=== PATIENT | female | born 2000 | race African-American/Black ===

== ENCOUNTER 2021-01-11 00:13 | Inpatient (IN) ==
[2021-01-11] MEDS ORDERED: MEPERIDINE 50 MG/1 ML VIAL IV PRN (02:12)
[2021-01-11] MEDS ORDERED: ONDANSETRON 4 MG/2 ML VIAL IV PRN ×2 (02:12→20:18)
[2021-01-11] MEDS ORDERED: BUTORPHANOL 2 MG/ML VIAL IV PRN (02:12)
[2021-01-11] MEDS ORDERED: LACTATED RINGERS 500 ML IV PRN (02:12)
[2021-01-11 02:28] LABS: Basophils % 0.1 % (0.0-0.8); Eosinophils # 0.1 10*3/uL (0.0-0.87); Hematocrit 35.9 VOL% (35.7-47.0); Hemoglobin 11.4 GM/DL (12.0-16.0); Immature Granulocytes % 0.6 %; Immature Granulocytes Absolute 0.05 #; Lymphocytes # 1.7 10*3/uL (1.4-4.0); Lymphocytes % 21.9 % (21.3-54.2); Mean Corpuscular HGB Conc 31.8 GM/DL (32-36); Mean Corpuscular Volume 85.3 FL (87-102); Mean Platelet Volume 8.8 FL (9.6-12.0); Monocytes % 8.5 % (1.7-12.7); Neutrophils % 67.9 % (38.7-73.9); Platelet Count 291 T/CUMM (130-400); Red Blood Count 4.21 MC/CUMM (3.8-5.5); White Blood Count 7.9 T/CUMM (4-12)
[2021-01-11] MEDS ORDERED: OXYTOCIN/LR 20 UNIT/1,000 ML BAG IV SCH (02:30)
[2021-01-11 03:03] LABS: Alanine Aminotransferase 21 U/L (13-56); Albumin 3.1 G/DL (3.4-5.0); Alkaline Phosphatase 148 U/L (45-117); Aspartate Amino Transferase 15 U/L (0-37); Bilirubin,Total < 0.39 MG/DL (0.20-1.00); Blood Urea Nitrogen 8 MG/DL (7-18); Calcium 9.5 MG/DL (8.5-10.1); Carbon Dioxide 24 MMOL/L (21-32); Estimated Glom Filtration Rate 187 ML/MIN; Glucose 88 MG/DL (74-106); Potassium 3.6 MMOL/L (3.5-5.1); Sodium 136 MMOL/L (136-145); Total Protein 7.5 G/DL (6.4-8.2)
[2021-01-11] MEDS: LACTATED RINGERS 1,000 ML IV SCH ×2 (03:03→10:40)
[2021-01-11] MEDS: CLINDAMYCIN INJ 900 MG/50 ML PREMIX IV SCH ×3 (03:11→14:53)
[2021-01-11] MEDS ORDERED: LACTATED RINGERS 1,000 ML IV ONE (13:07)
[2021-01-11] MEDS ORDERED: NALOXONE 0.4 MG/ML VIAL IV PRN (13:07)
[2021-01-11] MEDS ORDERED: FAMOTIDINE 20 MG/2 ML VIAL IV ONE (13:07)
[2021-01-11] MEDS ORDERED: ePHEDrine 50 MG/ML VIAL IV PRN (13:07)
[2021-01-11] MEDS ORDERED: CITRIC ACID/SODIUM CITRATE 30 ML UDCUP PO ONE (13:07)
[2021-01-11] MEDS ORDERED: diphenhydrAMINE 50 MG/1 ML VIAL IV PRN ×2 (13:07)
[2021-01-11] MEDS ORDERED: PROMETHAZINE 25 MG/1 ML VIAL IM ONE (13:07)
[2021-01-11] MEDS ORDERED: hydrOXYzine HCL 25 MG/1 ML VIAL IM PRN (13:07)
[2021-01-11] MEDS ORDERED: fentaNYL 2 MCG/ROPIV 0.2% EPID 100 ML EPIDURAL SCH (13:30)
[2021-01-11 15:42] LABS: Bilirubin,Urine Negative (Negative); Blood, Urine Negative (Negative); Glucose,Urine (UA) Negative (Negative); Ketones,Urine Negative (Negative); Nitrite,Urine Negative (Negative); Protein,Urine Negative; RBC,Urine <1 /HPF (0-4); Urine Appearance CLEAR (Clear); Urine Color Straw (Yellow); Urine Specific Gravity 1.006 (1.001-1.035); Urine Urobilinogen < 2.0 EU/DL (0.2-1.0)
[2021-01-11] MEDS ORDERED: TRANEXAMIC ACID 1,000 MG/10 ML VIAL ONE (18:43)
[2021-01-11] MEDS ORDERED: OXYTOCIN/LR 20 UNIT/1,000 ML BAG IV ONE ×2 (18:43→20:18)
[2021-01-11] MEDS ORDERED: miSOPROStoL 200 MCG TABLET ONE (18:43)
[2021-01-11] MEDS ORDERED: CARBOPROST TROMETHAMINE 250 MCG/ML AMP IM ONE (18:44)
[2021-01-11] MEDS ORDERED: METHYLERGONOVINE 0.2 MG/1 ML AMP ONE (18:44)
[2021-01-11] MEDS ORDERED: CLINDAMYCIN INJ 900 MG/50 ML PREMIX IV ONE (19:21)
[2021-01-11] MEDS ORDERED: ACETAMINOPHEN INJ 1,000 MG/100 ML VIAL IV ONE (19:48)
[2021-01-11] MEDS ORDERED: ONDANSETRON 4 MG/2 ML VIAL ONE (19:48)
[2021-01-11] MEDS ORDERED: LIDOCAINE MPF 2% /EPI 20 ML VIAL ONE (20:01)
[2021-01-11] MEDS ORDERED: PHENYLEPHRINE 1 MG/10 ML SYRINGE IV ONE (20:01)
[2021-01-11 20:02] LABS: Cord Arterial Blood HCO3 21.4 MMOL/L
[2021-01-11 20:05] LABS: Cord Venous Blood HCO3 22.5 MMOL/L; Cord Venous Blood PCO2 41.9 MMHG; Cord Venous Blood PO2 33.8
[2021-01-11] MEDS ORDERED: ACETAMINOPHEN 325 MG TABLET PO PRN (20:18)
[2021-01-11] MEDS ORDERED: RHO(D) IMMUNE GLOBULIN 300 MCG SYRINGE IM ONE (20:18)
[2021-01-11] MEDS ORDERED: oxyCODONE/ACETAMINOPHEN 5-325 MG TABLET PO PRN (20:19)
[2021-01-11] MEDS ORDERED: LACTATED RINGERS 1,000 ML IV SCH (20:30)
[2021-01-11] MEDS ORDERED: HYDROmorphone 2 MG/1 ML VIAL IV SCH (22:30)
[2021-01-12] MEDS: oxyCODONE/ACETAMINOPHEN 5-325 MG TABLET PO PRN ×4 (00:50→21:32)
[2021-01-12] MEDS ORDERED: OXYTOCIN/LR 20 UNIT/1,000 ML BAG IV ONE (02:31)
[2021-01-12] MEDS: CLINDAMYCIN INJ 900 MG/50 ML PREMIX IV SCH ×2 (03:00→11:07)
[2021-01-12] MEDS: IBUPROFEN 800 MG TABLET PO PRN ×3 (05:24→20:53)
[2021-01-12 06:06] LABS: Basophils % 0.2 % (0.0-0.8); Eosinophils # 0.1 10*3/uL (0.0-0.87); Eosinophils % 0.6 % (0.00-10.9); Hematocrit 30.5 VOL% (35.7-47.0); Hemoglobin 9.9 GM/DL (12.0-16.0); Immature Granulocytes % 0.3 %; Immature Granulocytes Absolute 0.03 #; Lymphocytes # 1.4 10*3/uL (1.4-4.0); Lymphocytes % 15.1 % (21.3-54.2); Mean Corpuscular HGB Conc 32.5 GM/DL (32-36); Mean Corpuscular Volume 84.3 FL (87-102); Mean Platelet Volume 9.5 FL (9.6-12.0); Monocytes % 8.6 % (1.7-12.7); Neutrophils % 75.2 % (38.7-73.9); Platelet Count 254 T/CUMM (130-400); Red Blood Count 3.62 MC/CUMM (3.8-5.5); Red Cell Distribution Width 14.7 % (9.3-17.3); White Blood Count 8.9 T/CUMM (4-12)
[2021-01-12] MEDS: SIMETHICONE CHEW 80 MG TABLET PO PRN ×2 (08:43→21:29)
[2021-01-12] MEDS: DOCUSATE SODIUM 100 MG CAPSULE PO SCH ×2 (08:43→20:53)
[2021-01-12] MEDS: MAGNESIUM HYDROXIDE SUSP 30 ML UDCUP PO PRN ×2 (08:43→20:53)
[2021-01-12] MEDS: MULTIVITAMIN (PRENATAL) TABLET PO SCH (08:43)
[2021-01-13] MEDS: oxyCODONE/ACETAMINOPHEN 5-325 MG TABLET PO PRN (07:21)
[2021-01-13] MEDS: MULTIVITAMIN (PRENATAL) TABLET PO SCH (08:58)
[2021-01-13] MEDS: DOCUSATE SODIUM 100 MG CAPSULE PO SCH (08:58)
[2021-01-13 09:39] VITALS: BP 112/57
[2021-01-13] MEDS: IBUPROFEN 800 MG TABLET PO PRN (12:35)
== END 2021-01-13 13:50 | disposition home or self-care (01) | DRG 540 ==
LOC: N.LD 00:13 → N.OB 23:56
PROVIDERS: ADMIT Obstetrics & Gynecology; ATTEND Obstetrics & Gynecology
PROC: LDCSECT (ICD-10-PCS; 2021-01-11 19:30)